=== PATIENT | male | born 1975 | race Two or more races ===

== ENCOUNTER 2022-06-22 10:00 | Inpatient (IN) | payer OTHER ==
[~2022-06-22] VITALS: Ht 177.8 cm; Wt 86.2 kg
[2022-06-22] MEDS ORDERED: COZAAR100 MG PO (12:09)
[2022-06-22] MEDS ORDERED: TAMS0.4C PO (12:24)
[2022-06-22] MEDS ORDERED: PROTONIX20 MG PO (12:24)
[2022-06-27] MEDS ORDERED: HYOSCYAMINE0.125 M1 SL (13:59)
[2022-06-27] MEDS ORDERED: PERCOCET 5-3251 EACH PO (13:59)
== END 2022-06-27 14:57 | disposition home or self-care (01) | DRG 330 ==
LOC: O/R 06-24 07:48 → SURH 06-24 10:00
PROVIDERS: ADMIT Surgery; ATTEND Surgery
PROC: 0DBP4ZZ Excision of Rectum, Percutaneous Endoscopic Approach (ICD-10-PCS; 2022-06-24)
PROC: 07BB4ZZ Excision of Mesenteric Lymphatic, Percutaneous Endoscopic Approach (ICD-10-PCS; 2022-06-24)
PROC: 0DTN4ZZ Resection of Sigmoid Colon, Percutaneous Endoscopic Approach (ICD-10-PCS; principal; 2022-06-24 11:30)
DX: C19 Malignant neoplasm of rectosigmoid junction (principal); K92.2 Gastrointestinal hemorrhage, unspecified; R59.0 Localized enlarged lymph nodes; G47.33 Obstructive sleep apnea (adult) (pediatric); N40.0 Benign prostatic hyperplasia without lower urinary tract symptoms; K21.9 Gastro-esophageal reflux disease without esophagitis; Z20.822 Contact with and (suspected) exposure to COVID-19; I11.9 Hypertensive heart disease without heart failure